=== PATIENT | male | born 1990 | race African-American/Black ===

== ENCOUNTER 2017-04-19 23:31 | Emergency (ER) | payer SELFPAY ==
[~2017-04-19] VITALS: Ht 198.1 cm; Wt 65.0 kg
[2017-04-19 23:34] VITALS: BP 121/67; PULSE 72; RESP 16; TEMP 98.9; O2SAT 100
[2017-04-20] MEDS ORDERED: ceFAZolin 2 GM PREMIX 50 ML IV ONE
[2017-04-20] MEDS ORDERED: TETANUS/DIPHTHERIA TOXOID ADULT 0.5 ML VIAL IM ONE
[2017-04-20] MEDS ORDERED: HYDR-3576 PO (00:10)
[2017-04-20] MEDS ORDERED: CEPH-460 PO (00:10)
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
== END 2017-04-20 01:36 | disposition home or self-care (01) ==
LOC: NEPD 23:31
DX: S61.511A Laceration without foreign body of right wrist, initial encounter (principal); S66.124A Laceration of flexor muscle, fascia and tendon of right ring finger at wrist and hand level, initial encounter; S66.126A Laceration of flexor muscle, fascia and tendon of right little finger at wrist and hand level, initial encounter; Z23 Encounter for immunization; Z79.899 Other long term (current) drug therapy; Z72.0 Tobacco use; W25.XXXA Contact with sharp glass, initial encounter
CPT/HCPCS: 12002; 73090; 90471; 90714; 96374; 99285; J0690

== ENCOUNTER → 2017-04-22 | Day surgery (SDC) | payer SELFPAY ==
[~2017-04-22] VITALS: Ht 167.6 cm; Wt 63.5 kg
[~2017-04-22] MED LIST: BUPIVACAINE HCL PF 0.5% 30 ML VIAL ONE; CEPH-460 PO; CHLORHEXIDINE GLUCONATE 2 % 1 PACK (2 CLOTHS) TOPICAL PRN; DEXAMETHASONE SOD PHOS 4 MG/ML VIAL ONE; HYDR-3576 PO; HYDROmorphone HCL PF 1 MG/ML VIAL ONE; LACTATED RINGER'S 1000 ML INJ 1,000 ML ONE; LACTATED RINGER'S 1000 ML IV PRN; LIDOCAINE HCL 2% 50 ML VIAL ONE; METOPROLOL TARTRATE 25 MG TAB PO PRN; MIDAZOLAM HCL 2 MG/2 ML VIAL ONE; MORPHINE SULFATE 4 MG/ML INJ ONE; NEOMYCIN/POLYMYXIN 1 ML G.U. IRRIGANT ONE; POVIDONE IODINE 5% (ANTISEPSIS KIT) 4 APPLICATIONS EACH NARE PRN; SODIUM CHLORID 0.9% 500 ML IV PRN; ceFAZolin 1,000 MG/NS 100 ML IV SCH
[2017-04-22 16:45] VITALS: BP 127/78; PULSE 73; RESP 16; TEMP 98.6; O2SAT 100
--- NOTE | 2017-04-23 18:20 | PD.OP ---
Operative Report Date of Surgery: Apr 22, 2017 Preoperative Diagnosis: (1) Laceration of forearm (2) Laceration of ulnar nerve (3) Laceration of tendon Right volar forearm laceration Ulnar nerve laceration Small finger and ring finger FDS/FDP laceration Postoperative Diagnosis: Right volar forearm laceration Ulnar nerve laceration Small finger ring finger and middle finger FDS/FDP laceration Ulnar artery laceration Flexor carpi ulnaris laceration Surgeon: Tyrese Orantes Risk Control Field Representative(s): None Operation and Findings: Patient was seen in the preoperative holding pain. Lengthy discussion was again had with the patient regarding his prognosis. Stressed again with the patient that this is a very severe injury. Stressed again with patient that he has a likely to have full recovery, although this will be the goal. Patient understands that ulnar nerve recovery may take up to a year or more. He is likely to need extensive occupational therapy. Patient expresses understanding of the above as well as the risks discussed in clinic. Having thoroughly discussed the risks benefits and alternatives of the various treatments including no treatment, informed consent was obtained. The surgical site was marked. The patient was taken to the operating room. All pressure points padded. After appropriate padding, an upper extremity tourniquet was placed. The surgical site was prepped and draped in the usual sterile fashion. The upper extremity was exsanguinated using an Esmarch, and the tourniquet inflated to 250 mmHg. The laceration sutures from the emergency department were removed the wound was explored. There was extensive hematoma obscuring the surgical field. This was thoroughly irrigated. The FCU was immediately appreciable in the wound. After blunt and sharp dissection, the ulnar neurovascular bundle was appreciated. The artery and nerve were dissected free of the surrounding tissue. The oblique laceration was then extended distally and proximally to allow for better exposure. Blunt dissection was used to dissect the FDS and FDP tendons free from the surrounding tissue. Distally the tendons were unable to be appreciated with the current exposure. As such the incision was continued ulnarly to the wrist crease then radially, ending in a carpal tunnel incision. The median nerve was identified and kept free from injury. A carpal tunnel release was necessary to obtain exposure of the distal tendons. Both the FDS and FDP tendons of the small finger ring finger and middle finger were found to be completely transected. The FDP to the middle finger, ring finger, and small finger were repaired each in a 4 core modified Randolph type repair using 4-0 nylon. Following this the FDS tendons were repaired to the small finger ring finger and middle finger. Attention was then turned to the ulnar neurovascular bundle. The edges of the ulnar nerve were freshened by cutting off roughly 1 millimeter proximally and distally using an 11 blade and a tongue depressor. Under loupe magnification the coinciding orientation of the proximal and distal ends was confirmed by comparing both the fascicle orientation as well as an obvious epineurial vessel. Following this the nerve was repaired in an epineurial fashion using interrupted 8-0 nylons. There were no fascicles protruding from the repaired epineurium. 4 mm Integra nerve wrap was cut to size placed around the neurorrhaphy and secured to itself with 2 6-0 nylons. After this attention was then turned to the ulnar artery. The artery was flushed with heparinized saline to remove the thrombus. The edges of the artery were freshened in a similar fashion as the nerve. This was sutured with 6 -0 Prolene. Lastly attention was turned to the flexor carpi ulnaris which was repaired with 4-0 nylons in a 4 core modified Randolph fashion. The incision was repaired with interrupted 4-0 nylons in a horizontal mattress fashion. The incisions were dressed with Xeroform. After appropriate padding was placed, an extension blocking splint was placed using plaster, maintaining the wrist metacarpal phalangeal and interphalangeal joints in mild flexion sufficient to prevent tension on the repairs. The tourniquet was let down at 2 hours and 21 minutes. The patient was awoken from anesthesia and arrived stably and doing well to the PACU. All needle sponge and instrument counts were correct 2. Tyrese Orantes MD Apr 23, 2017 18:20
== END | disposition home or self-care (01) ==
LOC: PHSDC 10:08
PROVIDERS: ATTEND Student in an Organized Health Care Education/Training Program
DX: S54.01XA Injury of ulnar nerve at forearm level, right arm, initial encounter (principal); S55.011A Laceration of ulnar artery at forearm level, right arm, initial encounter; S56.123A Laceration of flexor muscle, fascia and tendon of right middle finger at forearm level, initial encounter; S56.125A Laceration of flexor muscle, fascia and tendon of right ring finger at forearm level, initial encounter; S56.127A Laceration of flexor muscle, fascia and tendon of right little finger at forearm level, initial encounter
CPT/HCPCS: 01810; 01840; 01852; 25260; 26356; 35207; 64910; C9352; J0690; J1100; J1170; J2250; J2270; J7120